=== PATIENT | male | born 1950 | race Caucasian/White ===

== ENCOUNTER → 2017-02-28 | Outpatient (REF) | payer BC ==
[~2017-02-28] MED LIST: BENA1TAB32 PO; CIPR500S PO; CIPR500T89 PO; MULTCAP PO; OMEP40CA2 PO; SERT25TA PO; [UNRECOGNIZED DRUG - OTHER] PO
[2017-02-28 12:59] LABS: ALBUMIN 3.8 GM/DL (3.2-5.2); ALBUMIN/GLOBULIN RATIO 1.19 (1.00-1.93); ALKALINE PHOSPHATASE 67 U/L (45-117); ALT/SGPT 21 U/L (12-78); ANION GAP 4 MEQ/L (8-16); AST/SGOT 20 U/L (15-37); BILIRUBIN,TOTAL 0.6 MG/DL (0.2-1.0); BLOOD UREA NITROGEN 14 MG/DL (7-18); CALCIUM LEVEL 8.8 MG/DL (8.8-10.2); CARBON DIOXIDE LEVEL 35 MEQ/L (21-32); CHLORIDE LEVEL 101 MEQ/L (98-107); CHOLESTEROL LEVEL 151 MG/DL (<200); CREATININE FOR GFR 1.15 MG/DL (0.70-1.30); GLOMERULAR FILTRATION RATE > 60.0 (>49); GLUCOSE, FASTING 94 MG/DL (80-110); POTASSIUM SERUM 3.9 MEQ/L (3.5-5.1); SODIUM LEVEL 140 MEQ/L (136-145); TRIGLYCERIDES LEVEL 78 MG/DL (<150)
== END ==
LOC: M SFHCCLAY 08:23
PROVIDERS: ATTEND Family Medicine
DX: I10 Essential (primary) hypertension (principal); Z12.5 Encounter for screening for malignant neoplasm of prostate
CPT/HCPCS: 80053; 80061; 84443; G0103

== ENCOUNTER → 2018-05-21 | Outpatient (REF) | payer BC | LOC: M LAB REF 16:38 | DX: R30.0 Dysuria (principal) | CPT/HCPCS: 87086 ==

== ENCOUNTER → 2018-06-25 | Outpatient (REF) | payer BC | LOC: M SFHCCLAY 06-26 11:30 | DX: N39.0 Urinary tract infection, site not specified (principal) | CPT/HCPCS: 87086 ==

== ENCOUNTER → 2018-07-02 | Outpatient (REF) | payer BC ==
[2018-07-02 13:50] LABS: APPEARANCE, URINE CLEAR (CLEAR); BACTERIA, URINE AUTO NEGATIVE (NEGATIVE); BILIRUBIN, URINE AUTO NEGATIVE (NEGATIVE); BLOOD, URINE BLOOD 1+ (NEGATIVE); COLOR, URINE YELLOW (YELLOW); GLUCOSE, URINE (UA) AUTO NEGATIVE (NEGATIVE); KETONE, URINE AUTO NEGATIVE (NEGATIVE); LEUKOCYTE ESTERASE, URINE AUTO TRACE (NEGATIVE); MUCUS, URINE SMALL (NEGATIVE); NITRITE, URINE AUTO NEGATIVE (NEGATIVE); PROTEIN, URINE AUTO NEGATIVE (NEGATIVE); RBC, URINE AUTO 33 /HPF (0-3); SPECIFIC GRAVITY URINE AUTO 1.012 (1.002-1.035); SQUAMOUS EPITHELIAL CELL UR AU 0 /HPF (0-6); UROBILINOGEN, URINE AUTO 0.2 mg/dL (0.0-2.0); WBC, URINE AUTO 5 /HPF (0-3)
== END ==
LOC: M SMT 13:10
DX: R10.9 Unspecified abdominal pain (principal)

== ENCOUNTER → 2018-07-08 | Outpatient (CLI) | payer BC | LOC: M RAD 08:30 | DX: R10.9 Unspecified abdominal pain (principal); Z87.442 Personal history of urinary calculi; N28.1 Cyst of kidney, acquired; N13.2 Hydronephrosis with renal and ureteral calculous obstruction | CPT/HCPCS: 74176 ==

== ENCOUNTER → 2018-07-18 | Outpatient (CLI) | payer BC ==
[2018-07-18 09:42] LABS: HEMOGLOBIN 12.2 g/dl (13.5-17.5); MEAN CORPUSCULAR HEMOGLOBIN 35.2 pg (27.0-33.0); MEAN CORPUSCULAR HGB CONC 35.9 g/dl (32.0-36.5); PLATELET COUNT, AUTOMATED 245 10^3/uL (150-450); RED BLOOD COUNT 3.47 10^6/uL (4.30-6.10); RED CELL DISTRIBUTION WIDTH 12.6 % (11.5-14.5); WHITE BLOOD COUNT 5.1 10^3/uL (4.0-10.0)
[2018-07-18 09:53] LABS: INR 1.04; PROTHROMBIN TIME 13.7 SECONDS (12.1-14.4)
[2018-07-18 09:54] LABS: PARTIAL THROMBOPLASTIN TIME 31.4 SECONDS (25.4-37.6)
[2018-07-18 10:02] LABS: ANION GAP 9 MEQ/L (8-16); BLOOD UREA NITROGEN 14 MG/DL (7-18); CARBON DIOXIDE LEVEL 31 MEQ/L (21-32); CHLORIDE LEVEL 99 MEQ/L (98-107); CREATININE FOR GFR 1.21 MG/DL (0.70-1.30); GLOMERULAR FILTRATION RATE > 60.0 (>49); GLUCOSE, FASTING 95 MG/DL (70-100); POTASSIUM SERUM 3.9 MEQ/L (3.5-5.1); SODIUM LEVEL 139 MEQ/L (136-145)
== END ==
LOC: M LAB 08:39
DX: Z01.818 Encounter for other preprocedural examination (principal); N20.0 Calculus of kidney
CPT/HCPCS: 71046

== ENCOUNTER 2018-07-30 09:20 | Day surgery (SDC) | payer BC ==
[~2018-07-30 09:20] MED LIST changes: -BENA1TAB32 PO; -CIPR500S PO; -CIPR500T89 PO; +LIDOCAINE 1% MDV 20ML VIAL SQ; -MULTCAP PO; -OMEP40CA2 PO; -SERT25TA PO; -[UNRECOGNIZED DRUG - OTHER] PO
[2018-07-30] MEDS: LR 1,000 ML IV (10:03)
[2018-07-30] MEDS ORDERED: LIDOCAINE 2% INJ 100 MG/5 ML SDV (FOR ANES.) As Ordered (10:09)
[2018-07-30] MEDS ORDERED: PROPOFOL 200 MG/20 ML VIAL As Ordered (10:09)
[2018-07-30] MEDS ORDERED: fentaNYL 250 MCG/5 ML INJECTION (J3010) As Ordered (10:09)
[2018-07-30] MEDS ORDERED: MIDAZOLAM INJ 2 MG/2 ML VIAL (J2250) As Ordered (10:09)
[2018-07-30] MEDS: CONRAY-60 60% 50ML VIAL (Q9961) As Ordered (11:15)
[2018-07-30] MEDS ORDERED: ONDANSETRON 4MG/2ML VIAL (J2405) As Ordered (11:27)
[2018-07-30] MEDS ORDERED: KETOROLAC 60 MG/2 ML VIAL (J1885) As Ordered (11:27)
[2018-07-30] MEDS ORDERED: dexameTHASONE 4 MG/ML 1ML VIAL (J1100) As Ordered ×2 (11:27)
[2018-07-30] MEDS ORDERED: fentaNYL 100 MCG/2 ML INJECTION (J3010) IV (13:15)
[2018-07-30] MEDS ORDERED: LR 1,000 ML IV (13:15)
[2018-07-30] MEDS ORDERED: ONDANSETRON 4MG/2ML VIAL (J2405) IV (13:15)
[2018-07-30] MEDS ORDERED: ACETAMINOPHEN 650MG ER TAB (TYLENOL ARTHRITIS) PO (14:00)
[2018-07-30] MEDS ORDERED: CIPROFLOXACIN 500 MG TAB PO (18:00)
== END 2018-07-30 17:15 | disposition home or self-care (01) ==
LOC: M SDC 09:20
DX: N20.1 Calculus of ureter (principal); I10 Essential (primary) hypertension; M12.9 Arthropathy, unspecified; Z87.891 Personal history of nicotine dependence; Z79.899 Other long term (current) drug therapy
CPT/HCPCS: 52356

== ENCOUNTER → 2018-08-25 | Outpatient (REF) | payer BC ==
[2018-08-25 18:53] LABS: APPEARANCE, URINE CLEAR (CLEAR); BACTERIA, URINE AUTO NEGATIVE (NEGATIVE); BILIRUBIN, URINE AUTO NEGATIVE (NEGATIVE); BLOOD, URINE BLOOD NEGATIVE (NEGATIVE); COLOR, URINE YELLOW (YELLOW); GLUCOSE, URINE (UA) AUTO NEGATIVE (NEGATIVE); KETONE, URINE AUTO NEGATIVE (NEGATIVE); LEUKOCYTE ESTERASE, URINE AUTO NEGATIVE (NEGATIVE); NITRITE, URINE AUTO NEGATIVE (NEGATIVE); PROTEIN, URINE AUTO NEGATIVE (NEGATIVE); RBC, URINE AUTO 0 /HPF (0-3); SPECIFIC GRAVITY URINE AUTO 1.012 (1.002-1.035); SQUAMOUS EPITHELIAL CELL UR AU 0 /HPF (0-6); UROBILINOGEN, URINE AUTO 0.2 mg/dL (0.0-2.0); WBC, URINE AUTO 0 /HPF (0-3)
== END ==
LOC: M SMT 17:25
DX: N20.0 Calculus of kidney (principal)
CPT/HCPCS: 81001

== ENCOUNTER → 2019-03-25 | Outpatient (REF) | payer BC ==
[~2019-03-25] MED LIST changes: +BENA1TAB32 PO; +CIPR-249 PO; +CIPR500S PO; +CIPR500T3 PO; -LIDOCAINE 1% MDV 20ML VIAL SQ; +MULTCAP PO; +OMEP40CA2 PO; +SERT25TA85 PO; +TYLE650T35 PO; +[UNRECOGNIZED DRUG - OTHER] PO
[2019-03-25 11:12] LABS: HEMATOCRIT 35.1 % (42.0-52.0); HEMOGLOBIN 12.6 g/dl (13.5-17.5); MEAN CORPUSCULAR HEMOGLOBIN 35.1 pg (27.0-33.0); MEAN CORPUSCULAR HGB CONC 35.9 g/dl (32.0-36.5); MEAN CORPUSCULAR VOLUME 97.8 fl (80.0-96.0); PLATELET COUNT, AUTOMATED 266 10^3/uL (150-450); RED BLOOD COUNT 3.59 10^6/uL (4.30-6.10)
[2019-03-25 11:27] LABS: ALBUMIN 3.5 GM/DL (3.2-5.2); ALT/SGPT 22 U/L (12-78); BILIRUBIN,TOTAL 0.8 MG/DL (0.2-1.0); BLOOD UREA NITROGEN 20 MG/DL (7-18); CALCIUM LEVEL 8.4 MG/DL (8.8-10.2); CARBON DIOXIDE LEVEL 32 MEQ/L (21-32); CHLORIDE LEVEL 103 MEQ/L (98-107); CHOLESTEROL LEVEL 125 MG/DL (<200); CHOLESTEROL RISK RATIO 2.049 (<5); CREATININE FOR GFR 1.24 MG/DL (0.70-1.30); GLOMERULAR FILTRATION RATE > 60.0 (>49); GLUCOSE, FASTING 89 MG/DL (70-100); HDL CHOLESTEROL 61 MG/DL (>40); LDL CHOLESTEROL 50 MG/DL (<100); NON-HDL-C 64 MG/DL; POTASSIUM SERUM 4.1 MEQ/L (3.5-5.1); SODIUM LEVEL 139 MEQ/L (136-145); TRIGLYCERIDES LEVEL 72 MG/DL (<150)
== END ==
LOC: M SFHCCLAY 08:10
PROVIDERS: ATTEND Nurse Practitioner Family
DX: K21.9 Gastro-esophageal reflux disease without esophagitis (principal); I10 Essential (primary) hypertension

== ENCOUNTER → 2019-04-21 | Outpatient (REF) | payer BC ==
[2019-04-21 11:49] LABS: HEMATOCRIT 37.3 % (42.0-52.0); HEMOGLOBIN 13.2 g/dl (13.5-17.5); MEAN CORPUSCULAR HEMOGLOBIN 35.8 pg (27.0-33.0); MEAN CORPUSCULAR HGB CONC 35.4 g/dl (32.0-36.5); MEAN CORPUSCULAR VOLUME 101.1 fl (80.0-96.0); PLATELET COUNT, AUTOMATED 243 10^3/uL (150-450); RED BLOOD COUNT 3.69 10^6/uL (4.30-6.10); WHITE BLOOD COUNT 5.7 10^3/uL (4.0-10.0)
[2019-04-21 12:39] LABS: FERRITIN 50 NG/ML (26-388); FOLATE > 24.0 NG/ML (>5.4); IRON (FE) 60 UG/DL (65-175); PERCENT SATURATION 22.9 % (19.7-50.0); TOTAL IRON BINDING CAPACITY 262 UG/DL (250-450); VITAMIN B12 LEVEL 592 PG/ML (247-911)
== END ==
LOC: M SFHCCLAY 08:18
PROVIDERS: ATTEND Nurse Practitioner Family
DX: D64.9 Anemia, unspecified (principal)

== ENCOUNTER → 2019-09-08 | Outpatient (REF) | payer BC ==
[~2019-09-08] MED LIST changes: -OMEP40CA2 PO; +OMEP40CA97 PO
[2019-09-08 11:58] LABS: HEMATOCRIT 37.6 % (42.0-52.0); HEMOGLOBIN 13.4 g/dl (13.5-17.5); MEAN CORPUSCULAR HEMOGLOBIN 35.9 pg (27.0-33.0); MEAN CORPUSCULAR HGB CONC 35.6 g/dl (32.0-36.5); MEAN CORPUSCULAR VOLUME 100.8 fl (80.0-96.0); PLATELET COUNT, AUTOMATED 290 10^3/uL (150-450); RED BLOOD COUNT 3.73 10^6/uL (4.30-6.10); WHITE BLOOD COUNT 9.6 10^3/uL (4.0-10.0)
[2019-09-08 12:03] LABS: PERCENT SATURATION 40.7 % (19.7-50.0)
== END ==
LOC: M SFHCCLAY 08:52
PROVIDERS: ATTEND Nurse Practitioner Family
DX: D64.9 Anemia, unspecified (principal)

== ENCOUNTER → 2020-05-20 | Outpatient (REF) | payer BC ==
[~2020-05-20] MED LIST changes: +ACET650T61 PO; -TYLE650T35 PO
[2020-05-20 11:56] LABS: HEMATOCRIT 35.6 % (42.0-52.0); HEMOGLOBIN 12.7 g/dl (13.5-17.5); MEAN CORPUSCULAR HEMOGLOBIN 35.2 pg (27.0-33.0); MEAN CORPUSCULAR HGB CONC 35.7 g/dl (32.0-36.5); MEAN CORPUSCULAR VOLUME 98.6 fl (80.0-96.0); PLATELET COUNT, AUTOMATED 228 10^3/uL (150-450); RED BLOOD COUNT 3.61 10^6/uL (4.30-6.10); WHITE BLOOD COUNT 5.3 10^3/uL (4.0-10.0)
[2020-05-20 12:36] LABS: ALBUMIN 3.6 GM/DL (3.2-5.2); ALT/SGPT 23 U/L (12-78); BILIRUBIN,TOTAL 0.4 MG/DL (0.2-1.0); BLOOD UREA NITROGEN 19 MG/DL (7-18); CALCIUM LEVEL 8.8 MG/DL (8.8-10.2); CARBON DIOXIDE LEVEL 31 MEQ/L (21-32); CHLORIDE LEVEL 103 MEQ/L (98-107); CHOLESTEROL LEVEL 145 MG/DL (<200); CHOLESTEROL RISK RATIO 2.377 (<5); CREATININE FOR GFR 1.24 MG/DL (0.70-1.30); FERRITIN 50 NG/ML (26-388); GLOMERULAR FILTRATION RATE > 60.0 (>49); GLUCOSE, FASTING 93 MG/DL (70-100); HDL CHOLESTEROL 61 MG/DL (>40); IRON (FE) 53 UG/DL (65-175); LDL CHOLESTEROL 75 MG/DL (<100); NON-HDL-C 84 MG/DL; PERCENT SATURATION 19.5 % (19.7-50.0); POTASSIUM SERUM 4.1 MEQ/L (3.5-5.1); SODIUM LEVEL 137 MEQ/L (136-145); TOTAL IRON BINDING CAPACITY 272 UG/DL (250-450); TOTAL PROTEIN 6.9 GM/DL (6.4-8.2); TRIGLYCERIDES LEVEL 43 MG/DL (<150)
[2020-05-20 18:04] LABS: FOLATE 20.9 NG/ML (>5.4)
== END ==
LOC: M SFHCCLAY 08:24
PROVIDERS: ATTEND Nurse Practitioner Family
DX: K21.9 Gastro-esophageal reflux disease without esophagitis (principal); I10 Essential (primary) hypertension

== ENCOUNTER → 2020-06-14 | Outpatient (REF) | payer BC ==
[2020-06-14 13:22] LABS: ALBUMIN 3.8 GM/DL (3.2-5.2); BLOOD UREA NITROGEN 15 MG/DL (7-18); CALCIUM LEVEL 8.6 MG/DL (8.8-10.2); CARBON DIOXIDE LEVEL 31 MEQ/L (21-32); CHLORIDE LEVEL 96 MEQ/L (98-107); CREATININE FOR GFR 1.16 MG/DL (0.70-1.30); GLOMERULAR FILTRATION RATE > 60.0 (>49); GLUCOSE, FASTING 93 MG/DL (70-100); PHOSPHORUS LEVEL 3.1 MG/DL (2.5-4.9); POTASSIUM SERUM 3.6 MEQ/L (3.5-5.1); SODIUM LEVEL 134 MEQ/L (136-145)
== END ==
LOC: M SFHCCLAY 07:51
PROVIDERS: ATTEND Nurse Practitioner Family
DX: I10 Essential (primary) hypertension (principal)

== ENCOUNTER → 2021-02-16 | Outpatient (REF) | payer BC ==
[2021-02-16 12:30] LABS: HEMOGLOBIN 13.4 g/dl (13.5-17.5); MEAN CORPUSCULAR HEMOGLOBIN 35.1 pg (27.0-33.0); MEAN CORPUSCULAR HGB CONC 35.3 g/dl (32.0-36.5); MEAN CORPUSCULAR VOLUME 99.5 fl (80.0-96.0); PLATELET COUNT, AUTOMATED 252 10^3/uL (150-450); RED BLOOD COUNT 3.82 10^6/uL (4.30-6.10); WHITE BLOOD COUNT 5.9 10^3/uL (4.0-10.0)
[2021-02-16 13:02] LABS: ALBUMIN 3.9 GM/DL (3.2-5.2); ALT/SGPT 25 U/L (12-78); BILIRUBIN,TOTAL 0.4 MG/DL (0.2-1.0); BLOOD UREA NITROGEN 22 MG/DL (7-18); CALCIUM LEVEL 8.9 MG/DL (8.8-10.2); CARBON DIOXIDE LEVEL 33 MEQ/L (21-32); CHLORIDE LEVEL 101 MEQ/L (98-107); CHOLESTEROL LEVEL 160 MG/DL (<200); CHOLESTEROL RISK RATIO 2.461 (<5); CREATININE FOR GFR 1.21 MG/DL (0.70-1.30); FERRITIN 109 NG/ML (26-388); GLOMERULAR FILTRATION RATE > 60.0 (>49); GLUCOSE, FASTING 88 MG/DL (70-100); HDL CHOLESTEROL 65 MG/DL (>40); IRON (FE) 98 UG/DL (65-175); LDL CHOLESTEROL 78 MG/DL (<100); NON-HDL-C 95 MG/DL; PERCENT SATURATION 40.2 % (19.7-50.0); POTASSIUM SERUM 3.7 MEQ/L (3.5-5.1); SODIUM LEVEL 138 MEQ/L (136-145); TOTAL IRON BINDING CAPACITY 244 UG/DL (250-450); TRIGLYCERIDES LEVEL 86 MG/DL (<150)
[2021-02-16 13:03] LABS: VITAMIN B12 LEVEL 464 PG/ML
[2021-02-16 15:55] LABS: FOLATE > 24.0 NG/ML
== END ==
LOC: M SFHCCLAY 11:52
PROVIDERS: ATTEND Nurse Practitioner Family
DX: I10 Essential (primary) hypertension (principal); D64.9 Anemia, unspecified; K21.9 Gastro-esophageal reflux disease without esophagitis; F41.9 Anxiety disorder, unspecified; R60.9 Edema, unspecified

== ENCOUNTER → 2021-08-23 | Outpatient (REF) | payer BC ==
[~2021-08-23] MED LIST changes: +OMEP40CA4 PO; -OMEP40CA97 PO
[2021-08-23 12:05] LABS: HEMOGLOBIN 12.2 g/dl (13.5-17.5); MEAN CORPUSCULAR HEMOGLOBIN 34.4 pg (27.0-33.0); MEAN CORPUSCULAR HGB CONC 34.9 g/dl (32.0-36.5); MEAN CORPUSCULAR VOLUME 98.6 fl (80.0-96.0); PLATELET COUNT, AUTOMATED 244 10^3/uL (150-450); RED BLOOD COUNT 3.55 10^6/uL (4.30-6.10); WHITE BLOOD COUNT 6.2 10^3/uL (4.0-10.0)
== END ==
LOC: M SFHCCLAY 09:10
PROVIDERS: ATTEND Nurse Practitioner Family
DX: D64.9 Anemia, unspecified (principal); Z12.5 Encounter for screening for malignant neoplasm of prostate

== ENCOUNTER → 2021-10-20 | Outpatient (CLI) | payer BC ==
[~2021-10-20] MED LIST changes: +MULTTAB61 PO; +SERT50TA29 PO; +VITA200016 PO; +VITA250T4 PO
--- NOTE | 2021-10-20 13:43 | REP ---
INDICATION: DECREASED GFR ANEMIA COMPARISON: None TECHNIQUE: Real time denis scale ultrasound examination using curved array transducer. FINDINGS: The kidneys both demonstrate mildly increased parenchymal echotexture and increased central sinus fat suggesting chronic medical renal disease. Right kidney measures 11.1 x 5.6 x 4.6 cm with 1.7 cm lower pole benign appearing cyst and no evidence for hydronephrosis, nephrolithiasis, or renal mass lesion. Left kidney measures 10.4 x 4.8 x 5.4 cm with 2.4 cm septated midpole cortical cyst and no evidence for hydronephrosis, nephrolithiasis, or renal mass lesion. The prostate gland is heterogeneous, measures 5.6 x 5.8 x 4.6 cm (78 cc) and demonstrates nodular mass effect on the base of the bladder. Incidental subcentimeter hepatic cyst in the visualized right lobe noted. IMPRESSION: 1. Chronic medical renal disease and solitary bilateral cysts as above. 2. Enlarged prostate gland. <Electronically signed by Nimesh Benito > 10/20/21 1378
== END ==
LOC: M RAD 13:03
PROVIDERS: ATTEND Internal Medicine Medical Oncology
DX: D64.9 Anemia, unspecified (principal); N28.1 Cyst of kidney, acquired; K76.89 Other specified diseases of liver; N40.0 Benign prostatic hyperplasia without lower urinary tract symptoms; N18.9 Chronic kidney disease, unspecified

== ENCOUNTER → 2022-02-26 | Outpatient (REF) | payer BC ==
[~2022-02-26] MED LIST changes: +FERR325T3 PO; +OCUV1CAP4 PO; +TAMS1CAP17 PO
[2022-02-26 11:56] LABS: BASO # 0.1 10^3/uL (0.0-0.2); BASO % 1.4 % (0.0-1.0); EOS # 0.4 10^3/uL (0.0-0.5); EOS % 6.7 % (0.0-3.0); HEMOGLOBIN 11.8 g/dl (13.5-17.5); LYMPH # 1.6 10^3/uL (1.5-5.0); LYMPH % 24.8 % (24.0-44.0); MEAN CORPUSCULAR HEMOGLOBIN 34.3 pg (27.0-33.0); MEAN CORPUSCULAR HGB CONC 34.7 g/dl (32.0-36.5); MEAN CORPUSCULAR VOLUME 98.8 fl (80.0-96.0); MONO # 0.5 10^3/uL (0.0-0.8); MONO % 8.3 % (2.0-8.0); NEUTROPHILS # 3.8 10^3/uL (1.5-8.5); NEUTROPHILS % 58.6 % (36.0-66.0); PLATELET COUNT, AUTOMATED 239 10^3/uL (150-450); RED BLOOD COUNT 3.44 10^6/uL (4.30-6.10); WHITE BLOOD COUNT 6.5 10^3/uL (4.0-10.0)
[2022-02-26 12:14] LABS: ALBUMIN 3.8 GM/DL (3.2-5.2); BILIRUBIN,TOTAL 0.4 MG/DL (0.2-1.0); CALCIUM LEVEL 8.7 MG/DL (8.8-10.2); CHOLESTEROL RISK RATIO 2.666 (<5); CREATININE FOR GFR 2.09 MG/DL (0.70-1.30); FREE T4 0.95 NG/DL (0.76-1.46); GLOMERULAR FILTRATION RATE 33.6 (>42); THYROID STIMULATING HORMONE 1.28 uIU/ML (0.358-3.740)
== END ==
LOC: M SFHCCLAY 08:36
PROVIDERS: ATTEND Nurse Practitioner Family
DX: I10 Essential (primary) hypertension (principal); D64.9 Anemia, unspecified; F41.1 Generalized anxiety disorder; K21.9 Gastro-esophageal reflux disease without esophagitis

== ENCOUNTER → 2022-09-16 | Outpatient (CLI) | payer BC ==
[~2022-09-16] MED LIST changes: +D ME PO
== END ==
LOC: M LABSMTC 09:28
PROVIDERS: ATTEND Anesthesiology
DX: Z01.812 Encounter for preprocedural laboratory examination (principal); Z11.52 Encounter for screening for COVID-19

== ENCOUNTER 2022-09-19 08:50 | Day surgery (SDC) | payer BC ==
[~2022-09-19] VITALS: Ht 170.2 cm; Wt 78.8 kg
[2022-09-19] MEDS: NS 1,000 ML IV ONE (09:28)
[2022-09-19] MEDS ORDERED: fentaNYL 100 MCG/2 ML INJECTION As Ordered ONE (10:01)
[2022-09-19] MEDS ORDERED: LIDOCAINE 2% 100MG/5ML SDV (FOR ANES.) As Ordered ONE (10:07)
[2022-09-19] MEDS ORDERED: propofoL 200 MG/20 ML VIAL As Ordered ONE (10:07)
[2022-09-19 10:45] VITALS: BP 108/61
== END 2022-09-19 10:54 | disposition home or self-care (01) ==
LOC: M OPP 08:50
PROVIDERS: ATTEND Internal Medicine Gastroenterology
DX: Z12.11 Encounter for screening for malignant neoplasm of colon (principal); K64.0 First degree hemorrhoids; R12 Heartburn; Z79.899 Other long term (current) drug therapy; I10 Essential (primary) hypertension; F41.9 Anxiety disorder, unspecified; Z79.891 Long term (current) use of opiate analgesic; Z80.1 Family history of malignant neoplasm of trachea, bronchus and lung; Z80.3 Family history of malignant neoplasm of breast
CPT/HCPCS: 43235; 45378; J3010

== ENCOUNTER → 2023-01-07 | Outpatient (CLI) | payer BC | LOC: M PLALAB 13:00 | PROVIDERS: ATTEND Nurse Practitioner Women's Health | DX: Z12.5 Encounter for screening for malignant neoplasm of prostate (principal) | CPT/HCPCS: 36415; G0103 ==

== ENCOUNTER → 2023-02-22 | Outpatient (REF) | payer BC ==
[~2023-02-22] MED LIST changes: +FINA5TAB2
[2023-02-22 13:30] LABS: BASO # 0.1 10^3/uL (0.0-0.2); BASO % 1.2 % (0.0-1.0); EOS # 0.3 10^3/uL (0.0-0.5); EOS % 5.5 % (0.0-3.0); HEMATOCRIT 31.4 % (42.0-52.0); HEMOGLOBIN 10.7 g/dl (13.5-17.5); LYMPH # 1.5 10^3/uL (1.5-5.0); LYMPH % 24.8 % (24.0-44.0); MEAN CORPUSCULAR HEMOGLOBIN 34.2 pg (27.0-33.0); MEAN CORPUSCULAR HGB CONC 34.1 g/dl (32.0-36.5); MEAN CORPUSCULAR VOLUME 100.3 fl (80.0-96.0); MONO # 0.5 10^3/uL (0.0-0.8); MONO % 8.5 % (2.0-8.0); NEUTROPHILS # 3.6 10^3/uL (1.5-8.5); NEUTROPHILS % 59.8 % (36.0-66.0); PLATELET COUNT, AUTOMATED 249 10^3/uL (150-450); RED BLOOD COUNT 3.13 10^6/uL (4.30-6.10)
[2023-02-22 13:55] LABS: ALBUMIN 3.7 G/DL (3.2-5.2); BILIRUBIN,TOTAL 0.5 MG/DL (0.3-1.2); CHOLESTEROL RISK RATIO 2.69 (<5); CREATININE FOR GFR 2.87 MG/DL (0.70-1.30); GLOMERULAR FILTRATION RATE 23.2 (>42); HDL CHOLESTEROL 54.5 MG/DL (>40); LDL CHOLESTEROL 74.3 MG/DL (<100); NON-HDL-C 92.5 MG/DL; POTASSIUM SERUM 4.1 MMOL/L (3.5-5.1); TOTAL PROTEIN 6.6 G/DL (5.7-8.2)
[2023-02-22 13:57] LABS: FREE T4 1.17 NG/DL (0.89-1.76); THYROID STIMULATING HORMONE 1.187 uIU/ML (0.55-4.78)
== END ==
LOC: M SFHCCLAY 08:02
PROVIDERS: ATTEND Nurse Practitioner Family
DX: I10 Essential (primary) hypertension (principal); N18.32 Chronic kidney disease, stage 3b; N40.0 Benign prostatic hyperplasia without lower urinary tract symptoms; D64.9 Anemia, unspecified; K21.9 Gastro-esophageal reflux disease without esophagitis; F41.1 Generalized anxiety disorder

== ENCOUNTER → 2023-04-26 | Outpatient (CLI) | payer BC | LOC: M RAD 12:46 | PROVIDERS: ATTEND Internal Medicine Nephrology | DX: N28.1 Cyst of kidney, acquired (principal) ==

== ENCOUNTER → 2023-06-11 | Outpatient (CLI) | payer BC | LOC: M RAD 09:26 | PROVIDERS: ATTEND Physician Assistant | DX: N50.89 Other specified disorders of the male genital organs (principal) ==

== ENCOUNTER 2023-06-30 09:51 | Inpatient (IN) | payer MEDICARE, BC ==
[~2023-06-30] VITALS: Ht 170.2 cm; Wt 83.2 kg
[~2023-06-30 09:51] MED LIST changes: -FINA5TAB2; +FINA5TAB2 PO
[2023-06-30 11:37] LABS: BASO # 0.1 10^3/uL (0.0-0.2); BASO % 0.7 % (0.0-1.0); EOS % 0.5 % (0.0-3.0); HEMATOCRIT 25.3 % (42.0-52.0); HEMOGLOBIN 8.7 g/dl (13.5-17.5); LYMPH # 0.5 10^3/uL (1.5-5.0); LYMPH % 6.5 % (24.0-44.0); MEAN CORPUSCULAR HGB CONC 34.4 g/dl (32.0-36.5); MEAN CORPUSCULAR VOLUME 98.8 fl (80.0-96.0); MONO # 0.3 10^3/uL (0.0-0.8); MONO % 4.4 % (2.0-8.0); NEUTROPHILS # 6.6 10^3/uL (1.5-8.5); NEUTROPHILS % 87.6 % (36.0-66.0); PLATELET COUNT, AUTOMATED 210 10^3/uL (150-450); RED BLOOD COUNT 2.56 10^6/uL (4.30-6.10); WHITE BLOOD COUNT 7.5 10^3/uL (4.0-10.0)
[2023-06-30] MEDS ORDERED: NS 1,000 ML IV ONE (11:45)
[2023-06-30 12:07] LABS: CK-MB VALUE MASS 1.4 NG/ML (<3.6); LIPASE 68 U/L (12-53)
[2023-06-30 12:09] LABS: ALBUMIN 3.7 G/DL (3.2-5.2); ALKALINE PHOSPHATASE 54 U/L (46-116); ALT/SGPT 13 U/L (7.0-40); AST/SGOT < 8 U/L (<34); BILIRUBIN,DIRECT < 0.1 MG/DL (<0.4); BILIRUBIN,TOTAL 0.2 MG/DL (0.3-1.2); TOTAL PROTEIN 6.4 G/DL (5.7-8.2)
[2023-06-30 12:11] LABS: CPK CREATINE PHOSPHOKINASE 66 U/L (46-171); MB/CK RELATIVE INDEX 2.12 (< OR =4)
[2023-06-30 13:12] LABS: INFLUENZA A AMPLIFICATION NEGATIVE (NEGATIVE); INFLUENZA B AMPLIFICATION NEGATIVE (NEGATIVE)
[2023-06-30] MEDS ORDERED: NS 1,000 ML IV SCH (13:35)
[2023-06-30] MEDS ORDERED: MED REC IN PROGRESS XX SCH (14:00)
[2023-06-30 14:41] LABS: CALCIUM LEVEL 7.9 MG/DL (8.3-10.6); CREATININE FOR GFR 11.41 MG/DL (0.70-1.30); GLOMERULAR FILTRATION RATE 4.7 (>42); POTASSIUM SERUM 5.2 MMOL/L (3.5-5.1)
[2023-06-30] MEDS ORDERED: ACETAMINOPHEN TAB 650MG DOSE (2X325MG) PO PRN (14:45)
[2023-06-30] MEDS ORDERED: MOM 30ML SUSPENSION UDC PO PRN (14:45)
[2023-06-30] MEDS ORDERED: SOD POLYSTYRENE SULFONATE SUSP 15GM 60ML UD PO ONE (14:45)
[2023-06-30] MEDS ORDERED: OMEP-173 PO (14:52)
[2023-06-30] MEDS ORDERED: CYAN-1 PO (14:53)
[2023-06-30] MEDS ORDERED: HOME MED LIST COMPLETE! XX SCH (15:00)
[2023-06-30] MEDS: NS 1,000 ML IV SCH (15:05)
[2023-06-30 15:19] LABS: FERRITIN 222.7 NG/ML (10.5-307.3)
[2023-06-30 15:28] LABS: PROCALCITONIN 0.13 ng/ml
[2023-06-30 15:35] LABS: FOLATE 19.6 NG/ML (>5.4)
[2023-06-30 16:04] LABS: CREATININE,RANDOM URINE 82.7 MG/DL
[2023-06-30 17:55] LABS: ALBUMIN 3.3 G/DL (3.2-5.2); PHOSPHORUS LEVEL 5.7 MG/DL (2.4-5.1)
[2023-06-30 18:17] VITALS: BP 146/70; TEMP 97.7; O2SAT 98
[2023-06-30] MEDS: FERROUS SULFATE 325MG TAB PO SCH (18:28)
[2023-06-30 19:24] VITALS: BP 135/66; TEMP 98.7; O2SAT 100
[2023-06-30] MEDS: HEPARIN SOD (PORCINE) 5000UNITS/ML 1ML VIAL/SYRINGE SC SCH (20:34)
[2023-06-30] MEDS: DOCUSATE SODIUM 100MG CAPSULE PO SCH (21:00)
[2023-07-01] VITALS (11 sets, daily range): BP systolic 121–174; BP diastolic 61–78; TEMP 97.4–98.9; O2SAT 97–100
[2023-07-01] MEDS: NS 1,000 ML IV SCH ×2 (02:21→11:52)
[2023-07-01 04:53] LABS: BASO % 0.6 % (0.0-1.0); EOS # 0.3 10^3/uL (0.0-0.5); EOS % 4.4 % (0.0-3.0); HEMATOCRIT 21.6 % (42.0-52.0); HEMOGLOBIN 7.4 g/dl (13.5-17.5); LYMPH # 0.6 10^3/uL (1.5-5.0); MEAN CORPUSCULAR HEMOGLOBIN 34.4 pg (27.0-33.0); MEAN CORPUSCULAR HGB CONC 34.3 g/dl (32.0-36.5); MEAN CORPUSCULAR VOLUME 100.5 fl (80.0-96.0); MONO # 0.2 10^3/uL (0.0-0.8); MONO % 3.4 % (2.0-8.0); NEUTROPHILS # 5.9 10^3/uL (1.5-8.5); NEUTROPHILS % 83.3 % (36.0-66.0); PLATELET COUNT, AUTOMATED 181 10^3/uL (150-450); RED BLOOD COUNT 2.15 10^6/uL (4.30-6.10); WHITE BLOOD COUNT 7.1 10^3/uL (4.0-10.0)
[2023-07-01 05:05] LABS: CALCIUM LEVEL 7.6 MG/DL (8.3-10.6); CREATININE FOR GFR 11.53 MG/DL (0.70-1.30); GLOMERULAR FILTRATION RATE 4.7 (>42); MAGNESIUM LEVEL 2.7 MG/DL (1.8-2.4); POTASSIUM SERUM 5.1 MMOL/L (3.5-5.1)
[2023-07-01] MEDS: HEPARIN SOD (PORCINE) 5000UNITS/ML 1ML VIAL/SYRINGE SC SCH ×3 (05:42→20:40)
[2023-07-01] MEDS ORDERED: HEPARIN 1,000UNITS/ML 10ML VIAL (FOR RADIOLOGY & DIALYSIS ONLY) IV PRN (10:15)
[2023-07-01] MEDS ORDERED: SODIUM CHLORIDE 0.9% 1000ML IV PRN (10:15)
[2023-07-01] MEDS ORDERED: HEPARIN 1,000UNITS/ML 10ML VIAL (FOR RADIOLOGY & DIALYSIS ONLY) XX SCH (10:15)
[2023-07-01] MEDS ORDERED: fentaNYL 100 MCG/2 ML INJECTION As Ordered ONE (12:28)
[2023-07-01] MEDS ORDERED: HEPARIN 1,000UNITS/ML 10ML VIAL (FOR RADIOLOGY & DIALYSIS ONLY) As Ordered ONE (12:28)
[2023-07-01] MEDS ORDERED: MIDAZOLAM INJ 2MG/2ML VIAL As Ordered ONE (12:28)
[2023-07-01] MEDS ORDERED: LIDOCAINE W/EPINEPHRINE 1% 20ML VIAL As Ordered ONE (12:29)
[2023-07-01] MEDS ORDERED: ceFAZolin 2 GM/D5W 50 ML IV BAG As Ordered ONE (12:31)
[2023-07-01] MEDS: FERROUS SULFATE 325MG TAB PO SCH (13:50)
[2023-07-01] MEDS: DOCUSATE SODIUM 100MG CAPSULE PO SCH ×2 (13:50→20:40)
[2023-07-01] MEDS: MULTIVITAMINS/MINERALS THERAP 1 TAB PO SCH (13:50)
[2023-07-01] MEDS: TAMSULOSIN 0.4 MG CAP PO SCH (13:50)
[2023-07-01] MEDS: OMEPRAZOLE 20MG CAP PO SCH (13:51)
[2023-07-01] MEDS: FINASTERIDE 5MG TAB PO SCH (13:51)
[2023-07-01] MEDS ORDERED: NS 1,000 ML IV SCH (14:00)
[2023-07-01] MEDS ORDERED: ceFAZolin SOD 2 GM in IV 1 EA IV ONE (14:00)
[2023-07-01 15:31] LABS: HEPATITIS B SURFACE ANTIBODY NEGATIVE (POSITIVE)
[2023-07-01 16:03] LABS: HEPATITIS B CORE ANTIBODY IGM NEGATIVE (NEGATIVE); HEPATITIS C VIRUS ABY INDEX 0.11 INDEX (<0.8)
[2023-07-01] MEDS: amLODIPine 5 MG TAB PO SCH (17:59)
[2023-07-01 19:16] LABS: HEMATOCRIT 25.8 % (42.0-52.0); HEMOGLOBIN 8.9 g/dl (13.5-17.5)
[2023-07-02] VITALS (7 sets, daily range): BP systolic 146–167; BP diastolic 71–83; TEMP 97.7–98.4; O2SAT 97–99
[2023-07-02] MEDS ORDERED: HEPARIN 1,000UNITS/ML 10ML VIAL (FOR RADIOLOGY & DIALYSIS ONLY) IV PRN (00:45)
[2023-07-02] MEDS ORDERED: SODIUM CHLORIDE 0.9% 1000ML IV PRN (00:45)
[2023-07-02] MEDS ORDERED: HEPARIN 1,000UNITS/ML 10ML VIAL (FOR RADIOLOGY & DIALYSIS ONLY) XX SCH (00:45)
[2023-07-02] MEDS: HEPARIN SOD (PORCINE) 5000UNITS/ML 1ML VIAL/SYRINGE SC SCH ×3 (05:45→21:27)
[2023-07-02 06:06] LABS: BASO # 0.1 10^3/uL (0.0-0.2); BASO % 0.9 % (0.0-1.0); EOS # 0.4 10^3/uL (0.0-0.5); EOS % 6.9 % (0.0-3.0); HEMATOCRIT 24.4 % (42.0-52.0); HEMOGLOBIN 8.4 g/dl (13.5-17.5); LYMPH # 0.8 10^3/uL (1.5-5.0); LYMPH % 11.9 % (24.0-44.0); MEAN CORPUSCULAR HGB CONC 34.4 g/dl (32.0-36.5); MEAN CORPUSCULAR VOLUME 98.8 fl (80.0-96.0); MONO # 0.5 10^3/uL (0.0-0.8); MONO % 8.3 % (2.0-8.0); NEUTROPHILS # 4.5 10^3/uL (1.5-8.5); NEUTROPHILS % 71.5 % (36.0-66.0); PLATELET COUNT, AUTOMATED 168 10^3/uL (150-450); RED BLOOD COUNT 2.47 10^6/uL (4.30-6.10); WHITE BLOOD COUNT 6.4 10^3/uL (4.0-10.0)
[2023-07-02 06:37] LABS: CALCIUM LEVEL 7.5 MG/DL (8.3-10.6); CREATININE FOR GFR 8.16 MG/DL (0.70-1.30); MAGNESIUM LEVEL 2.2 MG/DL (1.8-2.4); POTASSIUM SERUM 4.3 MMOL/L (3.5-5.1)
[2023-07-02] MEDS: TAMSULOSIN 0.4 MG CAP PO SCH (12:52)
[2023-07-02] MEDS: amLODIPine 5 MG TAB PO SCH (12:52)
[2023-07-02] MEDS: DOCUSATE SODIUM 100MG CAPSULE PO SCH ×2 (12:52→21:00)
[2023-07-02] MEDS: FINASTERIDE 5MG TAB PO SCH (12:52)
[2023-07-02] MEDS: OMEPRAZOLE 20MG CAP PO SCH (12:52)
[2023-07-02] MEDS: FERROUS SULFATE 325MG TAB PO SCH (12:52)
[2023-07-02] MEDS: MULTIVITAMINS/MINERALS THERAP 1 TAB PO SCH (12:53)
[2023-07-03 05:14] VITALS: BP 153/70; TEMP 98.1; O2SAT 98
[2023-07-03] MEDS: HEPARIN SOD (PORCINE) 5000UNITS/ML 1ML VIAL/SYRINGE SC SCH ×3 (05:23→21:09)
[2023-07-03 05:55] LABS: BASO # 0.1 10^3/uL (0.0-0.2); BASO % 0.9 % (0.0-1.0); EOS # 0.5 10^3/uL (0.0-0.5); EOS % 9.3 % (0.0-3.0); HEMATOCRIT 24.3 % (42.0-52.0); HEMOGLOBIN 8.2 g/dl (13.5-17.5); LYMPH # 1.1 10^3/uL (1.5-5.0); LYMPH % 18.7 % (24.0-44.0); MEAN CORPUSCULAR HEMOGLOBIN 33.7 pg (27.0-33.0); MEAN CORPUSCULAR HGB CONC 33.7 g/dl (32.0-36.5); MONO # 0.7 10^3/uL (0.0-0.8); MONO % 11.6 % (2.0-8.0); NEUTROPHILS # 3.4 10^3/uL (1.5-8.5); NEUTROPHILS % 59.3 % (36.0-66.0); PLATELET COUNT, AUTOMATED 148 10^3/uL (150-450); RED BLOOD COUNT 2.43 10^6/uL (4.30-6.10); WHITE BLOOD COUNT 5.8 10^3/uL (4.0-10.0)
[2023-07-03] MEDS ORDERED: SODIUM CHLORIDE 0.9% 1000ML IV PRN (06:05)
[2023-07-03] MEDS ORDERED: HEPARIN 1,000UNITS/ML 10ML VIAL (FOR RADIOLOGY & DIALYSIS ONLY) IV PRN (06:05)
[2023-07-03] MEDS ORDERED: DARBEPOETIN 100MCG/0.5ML *DIALYSIS* SYRINGE IV SCH (06:05)
[2023-07-03] MEDS ORDERED: HEPARIN 1,000UNITS/ML 10ML VIAL (FOR RADIOLOGY & DIALYSIS ONLY) XX SCH (06:05)
[2023-07-03 06:16] LABS: CALCIUM LEVEL 8.1 MG/DL (8.3-10.6); CREATININE FOR GFR 5.77 MG/DL (0.70-1.30); GLOMERULAR FILTRATION RATE 10.4 (>42); MAGNESIUM LEVEL 1.9 MG/DL (1.8-2.4); POTASSIUM SERUM 4.3 MMOL/L (3.5-5.1)
[2023-07-03] MEDS: TAMSULOSIN 0.4 MG CAP PO SCH (06:36)
[2023-07-03] MEDS: DOCUSATE SODIUM 100MG CAPSULE PO SCH ×2 (06:37→21:09)
[2023-07-03] MEDS: FINASTERIDE 5MG TAB PO SCH (06:37)
[2023-07-03] MEDS: FERROUS SULFATE 325MG TAB PO SCH (06:37)
[2023-07-03] MEDS: MULTIVITAMINS/MINERALS THERAP 1 TAB PO SCH (06:37)
[2023-07-03] MEDS: OMEPRAZOLE 20MG CAP PO SCH (06:37)
[2023-07-03] MEDS: amLODIPine 5 MG TAB PO SCH (08:44)
[2023-07-03 16:15] VITALS: BP 159/79; TEMP 97.7; O2SAT 98
[2023-07-03 20:50] VITALS: BP 151/69; TEMP 98.1; O2SAT 98
[2023-07-04 05:54] LABS: BASO # 0.1 10^3/uL (0.0-0.2); EOS # 0.6 10^3/uL (0.0-0.5); EOS % 9.7 % (0.0-3.0); HEMATOCRIT 23.3 % (42.0-52.0); HEMOGLOBIN 8.2 g/dl (13.5-17.5); LYMPH # 1.2 10^3/uL (1.5-5.0); LYMPH % 19.3 % (24.0-44.0); MEAN CORPUSCULAR HGB CONC 35.2 g/dl (32.0-36.5); MEAN CORPUSCULAR VOLUME 96.7 fl (80.0-96.0); MONO # 0.6 10^3/uL (0.0-0.8); MONO % 10.5 % (2.0-8.0); NEUTROPHILS # 3.6 10^3/uL (1.5-8.5); NEUTROPHILS % 59.2 % (36.0-66.0); PLATELET COUNT, AUTOMATED 151 10^3/uL (150-450); RED BLOOD COUNT 2.41 10^6/uL (4.30-6.10)
[2023-07-04 06:00] VITALS: BP 151/71; TEMP 98.1; O2SAT 97
[2023-07-04] MEDS: HEPARIN SOD (PORCINE) 5000UNITS/ML 1ML VIAL/SYRINGE SC SCH ×3 (06:04→21:15)
[2023-07-04 06:23] LABS: CALCIUM LEVEL 8.4 MG/DL (8.3-10.6); CREATININE FOR GFR 4.17 MG/DL (0.70-1.30); GLOMERULAR FILTRATION RATE 15.1 (>42); MAGNESIUM LEVEL 1.7 MG/DL (1.8-2.4); POTASSIUM SERUM 4.3 MMOL/L (3.5-5.1)
[2023-07-04] MEDS: TAMSULOSIN 0.4 MG CAP PO SCH (08:21)
[2023-07-04] MEDS: FINASTERIDE 5MG TAB PO SCH (08:21)
[2023-07-04] MEDS: DOCUSATE SODIUM 100MG CAPSULE PO SCH ×2 (08:21→21:15)
[2023-07-04] MEDS: MULTIVITAMINS/MINERALS THERAP 1 TAB PO SCH (08:21)
[2023-07-04] MEDS: FERROUS SULFATE 325MG TAB PO SCH (08:21)
[2023-07-04] MEDS: OMEPRAZOLE 20MG CAP PO SCH (08:21)
[2023-07-04] MEDS: amLODIPine 5 MG TAB PO SCH (08:21)
[2023-07-04] MEDS: MAG SULF 1GM/100ML (MAG RUN) 1 GM in IV 1 EA IV SCH ×2 (08:22→11:56)
[2023-07-04 14:00] VITALS: BP 120/56; TEMP 98.1; O2SAT 99
[2023-07-04 20:16] VITALS: BP 142/68; TEMP 98.2; O2SAT 98
[2023-07-05] VITALS (7 sets, daily range): BP systolic 138–174; BP diastolic 73–81; TEMP 98.1–98.7; O2SAT 98
[2023-07-05] MEDS: HEPARIN SOD (PORCINE) 5000UNITS/ML 1ML VIAL/SYRINGE SC SCH (05:58)
[2023-07-05 06:12] LABS: BASO # 0.1 10^3/uL (0.0-0.2); BASO % 0.9 % (0.0-1.0); EOS # 0.6 10^3/uL (0.0-0.5); EOS % 8.5 % (0.0-3.0); HEMATOCRIT 22.4 % (42.0-52.0); HEMOGLOBIN 7.9 g/dl (13.5-17.5); LYMPH # 1.1 10^3/uL (1.5-5.0); LYMPH % 16.6 % (24.0-44.0); MEAN CORPUSCULAR HEMOGLOBIN 34.1 pg (27.0-33.0); MEAN CORPUSCULAR HGB CONC 35.3 g/dl (32.0-36.5); MEAN CORPUSCULAR VOLUME 96.6 fl (80.0-96.0); MONO # 0.6 10^3/uL (0.0-0.8); MONO % 9.1 % (2.0-8.0); NEUTROPHILS # 4.3 10^3/uL (1.5-8.5); NEUTROPHILS % 64.6 % (36.0-66.0); PLATELET COUNT, AUTOMATED 140 10^3/uL (150-450); RED BLOOD COUNT 2.32 10^6/uL (4.30-6.10); WHITE BLOOD COUNT 6.6 10^3/uL (4.0-10.0)
[2023-07-05 06:38] LABS: CREATININE FOR GFR 5.61 MG/DL (0.70-1.30); GLOMERULAR FILTRATION RATE 10.7 (>42); POTASSIUM SERUM 4.2 MMOL/L (3.5-5.1)
[2023-07-05] MEDS ORDERED: HEPARIN 1,000UNITS/ML 10ML VIAL (FOR RADIOLOGY & DIALYSIS ONLY) IV PRN (07:05)
[2023-07-05] MEDS ORDERED: HEPARIN 1,000UNITS/ML 10ML VIAL (FOR RADIOLOGY & DIALYSIS ONLY) XX SCH (07:05)
[2023-07-05] MEDS ORDERED: SODIUM CHLORIDE 0.9% 1000ML IV PRN (07:05)
[2023-07-05] MEDS: DOCUSATE SODIUM 100MG CAPSULE PO SCH (08:00)
[2023-07-05] MEDS: MULTIVITAMINS/MINERALS THERAP 1 TAB PO SCH (08:00)
[2023-07-05] MEDS: OMEPRAZOLE 20MG CAP PO SCH (08:00)
[2023-07-05] MEDS: FERROUS SULFATE 325MG TAB PO SCH (08:00)
[2023-07-05] MEDS: FINASTERIDE 5MG TAB PO SCH (08:00)
[2023-07-05] MEDS: TAMSULOSIN 0.4 MG CAP PO SCH (08:00)
[2023-07-05] MEDS: amLODIPine 5 MG TAB PO SCH (08:02)
[2023-07-05 09:31] LABS: MAGNESIUM LEVEL 2.2 MG/DL (1.8-2.4)
[2023-07-05] MEDS ORDERED: [UNRECOGNIZED DRUG - CODE] PO (10:49)
[2023-07-05] MEDS ORDERED: AMLO10TA PO (10:49)
== END 2023-07-05 14:05 | disposition home or self-care (01) | DRG 674 ==
LOC: M ED 09:51 → M ED INP 14:45 → M PCU 18:17 → M MSPAV 07-02 17:50
PROVIDERS: ADMIT Internal Medicine; ATTEND Internal Medicine
PROC: 30233N1 Transfusion of Nonautologous Red Blood Cells into Peripheral Vein, Percutaneous Approach (ICD-10-PCS; 2023-07-01)
PROC: 0JH63XZ Insertion of Tunneled Vascular Access Device into Chest Subcutaneous Tissue and Fascia, Percutaneous Approach (ICD-10-PCS; principal; 2023-07-01 12:00)
PROC: 5A1D70Z Performance of Urinary Filtration, Intermittent, Less than 6 Hours Per Day (ICD-10-PCS; 2023-07-05)
DX: N17.9 Acute kidney failure, unspecified (principal); I12.0 Hypertensive chronic kidney disease with stage 5 chronic kidney disease or end stage renal disease; N18.6 End stage renal disease; F41.9 Anxiety disorder, unspecified; N40.0 Benign prostatic hyperplasia without lower urinary tract symptoms; D63.8 Anemia in other chronic diseases classified elsewhere; E55.9 Vitamin D deficiency, unspecified; E87.5 Hyperkalemia; K21.9 Gastro-esophageal reflux disease without esophagitis; I70.1 Atherosclerosis of renal artery; K76.89 Other specified diseases of liver; N20.0 Calculus of kidney; R60.0 Localized edema; Z98.41 Cataract extraction status, right eye; Z98.42 Cataract extraction status, left eye; Z79.899 Other long term (current) drug therapy

== ENCOUNTER → 2023-09-03 | Outpatient (REF) | payer BC ==
[~2023-09-03] MED LIST changes: +AMLO10TA PO; +CYAN-1 PO; +LOSA25TA13; +OMEP-173 PO; +[UNRECOGNIZED DRUG - CODE] PO
== END ==
LOC: M SMT 17:50
PROVIDERS: ATTEND Urology
DX: N48.9 Disorder of penis, unspecified (principal); L81.4 Other melanin hyperpigmentation; L90.5 Scar conditions and fibrosis of skin

== ENCOUNTER → 2023-10-15 | Day surgery (SDC) | payer BC, MEDICARE ==
[~2023-10-15] VITALS: Ht 170.2 cm; Wt 73.8 kg
[~2023-10-15] MED LIST changes: +AMLO1TAB24 PO; +ASPI81TA26 PO; +GLYCOPYRROLATE INJ 0.2 MG/ML 2 ML VIAL As Ordered ONE; +HEPARIN SOD (PORCINE) 5000UNITS/ML 1ML VIAL/SYRINGE As Ordered ONE; +LIDOCAINE 1% SDV 30ML VIAL As Ordered ONE; +LIDOCAINE 2% 100MG/5ML SDV (FOR ANES.) As Ordered ONE; -LOSA25TA13; +LOSA25TA13 PO; +LR 1,000 ML IV SCH; +MIDAZOLAM INJ 2MG/2ML VIAL As Ordered ONE; +MORPHINE 2 MG/ML 1ML VIAL IV PRN; +ONDANSETRON 4MG 2ML VIAL As Ordered ONE; +ONDANSETRON 4MG 2ML VIAL IV PRN; +PAPAVERINE HCL 60MG 2ML VIAL (30MG/ML) As Ordered ONE; +PHENYLephrine 500MCG 5ML (100MCG/ML) SYRINGE As Ordered ONE; +VASOPRESSIN INJ 20UNITS/ML 1ML VIAL As Ordered ONE; +ceFAZolin 2 GM/D5W 50 ML IV BAG As Ordered ONE; +ceFAZolin SOD 2 GM in IV 1 EA IV ONE; +ePHEDrine SULFATE 25 MG/5 ML(5MG/ML) SYRINGE As Ordered ONE; +fentaNYL 100 MCG/2 ML INJECTION As Ordered ONE; +fentaNYL 100 MCG/2 ML INJECTION IV PRN; +oxyCODONE 5MG TAB PO PRN; +propofoL 200 MG/20 ML VIAL As Ordered ONE
[2023-10-15 07:20] LABS: HEMATOCRIT 29.5 % (42.0-52.0); HEMOGLOBIN 10.1 g/dl (13.5-17.5); MEAN CORPUSCULAR HEMOGLOBIN 36.5 pg (27.0-33.0); MEAN CORPUSCULAR HGB CONC 34.2 g/dl (32.0-36.5); MEAN CORPUSCULAR VOLUME 106.5 fl (80.0-96.0); PLATELET COUNT, AUTOMATED 256 10^3/uL (150-450); RED BLOOD COUNT 2.77 10^6/uL (4.30-6.10); WHITE BLOOD COUNT 5.3 10^3/uL (4.0-10.0)
[2023-10-15 08:01] LABS: CALCIUM LEVEL 8.7 MG/DL (8.3-10.6); GLOMERULAR FILTRATION RATE 12.2 (>42); POTASSIUM SERUM 4.1 MMOL/L (3.5-5.1)
[2023-10-15 13:11] VITALS: BP 140/83; TEMP 98; O2SAT 98
== END | disposition home or self-care (01) ==
LOC: M SDC 06:28
PROVIDERS: ATTEND Surgery Vascular Surgery
DX: N18.6 End stage renal disease (principal); I12.0 Hypertensive chronic kidney disease with stage 5 chronic kidney disease or end stage renal disease; F41.9 Anxiety disorder, unspecified; K21.9 Gastro-esophageal reflux disease without esophagitis; Z87.891 Personal history of nicotine dependence; Z99.2 Dependence on renal dialysis
CPT/HCPCS: 36415; 36821; 36833; 80048; 85027; 86850; 86900; 86901; 93005; J0665; J0690; J1100; J2250; J2371; J2405; J2440; J2598; J3010

== ENCOUNTER → 2024-01-08 | Outpatient (CLI) | payer BC ==
[~2024-01-08] MED LIST changes: -GLYCOPYRROLATE INJ 0.2 MG/ML 2 ML VIAL As Ordered ONE; -HEPARIN SOD (PORCINE) 5000UNITS/ML 1ML VIAL/SYRINGE As Ordered ONE; -LIDOCAINE 1% SDV 30ML VIAL As Ordered ONE; -LIDOCAINE 2% 100MG/5ML SDV (FOR ANES.) As Ordered ONE; -LR 1,000 ML IV SCH; -MIDAZOLAM INJ 2MG/2ML VIAL As Ordered ONE; -MORPHINE 2 MG/ML 1ML VIAL IV PRN; -ONDANSETRON 4MG 2ML VIAL As Ordered ONE; -ONDANSETRON 4MG 2ML VIAL IV PRN; -PAPAVERINE HCL 60MG 2ML VIAL (30MG/ML) As Ordered ONE; -PHENYLephrine 500MCG 5ML (100MCG/ML) SYRINGE As Ordered ONE; -VASOPRESSIN INJ 20UNITS/ML 1ML VIAL As Ordered ONE; -ceFAZolin 2 GM/D5W 50 ML IV BAG As Ordered ONE; -ceFAZolin SOD 2 GM in IV 1 EA IV ONE; -ePHEDrine SULFATE 25 MG/5 ML(5MG/ML) SYRINGE As Ordered ONE; -fentaNYL 100 MCG/2 ML INJECTION As Ordered ONE; -fentaNYL 100 MCG/2 ML INJECTION IV PRN; -oxyCODONE 5MG TAB PO PRN; -propofoL 200 MG/20 ML VIAL As Ordered ONE
== END ==
LOC: M PLALAB 08:43
PROVIDERS: ATTEND Physician Assistant
DX: Z12.5 Encounter for screening for malignant neoplasm of prostate (principal)
CPT/HCPCS: 36415; G0103

== ENCOUNTER → 2024-02-14 | Outpatient (CLI) | payer BC | LOC: M PLAIMG 12:28 | PROVIDERS: ATTEND Nurse Practitioner Family | DX: Z01.818 Encounter for other preprocedural examination (principal) ==

== ENCOUNTER → 2024-03-11 | Outpatient (CLI) | payer BC | LOC: M CLY 11:51 | PROVIDERS: ATTEND Nurse Practitioner Family | DX: R05.8 Other specified cough (principal) ==

== ENCOUNTER → 2024-03-11 | Outpatient (REF) | payer BC ==
[2024-03-11 18:26] LABS: BASO # 0.2 10^3/uL (0.0-0.2); BASO % 1.1 % (0.0-1.0); EOS # 0.8 10^3/uL (0.0-0.5); HEMATOCRIT 35.5 % (42.0-52.0); HEMOGLOBIN 11.9 g/dl (13.5-17.5); LYMPH # 1.9 10^3/uL (1.5-5.0); LYMPH % 13.4 % (24.0-44.0); MEAN CORPUSCULAR HGB CONC 33.5 g/dl (32.0-36.5); MEAN CORPUSCULAR VOLUME 110.2 fl (80.0-96.0); MONO # 0.8 10^3/uL (0.0-0.8); NEUTROPHILS # 9.6 10^3/uL (1.5-8.5); PLATELET COUNT, AUTOMATED 287 10^3/uL (150-450); RED BLOOD COUNT 3.22 10^6/uL (4.30-6.10); WHITE BLOOD COUNT 13.9 10^3/uL (4.0-10.0)
[2024-03-11 18:33] LABS: ERYTHROCYTE SEDIMENTATION RATE 28 mm/hr (0-20)
[2024-03-11 18:48] LABS: C REACTIVE PROTEIN QUANTITATIV 3.9 MG/DL (<1.0)
[2024-03-11 18:50] LABS: ALBUMIN 3.3 G/DL (3.2-5.2); BILIRUBIN,TOTAL 0.2 MG/DL (0.3-1.2); CALCIUM LEVEL 8.5 MG/DL (8.3-10.6); CREATININE FOR GFR 6.99 MG/DL (0.70-1.30); GLOMERULAR FILTRATION RATE 8.3 (>42); POTASSIUM SERUM 5.1 MMOL/L (3.5-5.1); TOTAL PROTEIN 6.8 G/DL (5.7-8.2)
== END ==
LOC: M SFHCCLAY 11:45
PROVIDERS: ATTEND Nurse Practitioner Family
DX: R21 Rash and other nonspecific skin eruption (principal)

== ENCOUNTER → 2024-07-08 | Outpatient (REF) | payer BC ==
[~2024-07-08] MED LIST changes: +SEVE800T3 PO; +VITA250T27 PO; -VITA250T4 PO
== END ==
LOC: EDSTATUS 10:45 → M RAD 10:55
PROVIDERS: ATTEND Surgery
DX: N18.6 End stage renal disease (principal)

== ENCOUNTER → 2024-10-21 | Outpatient (CLI) | payer BC ==
[~2024-10-21] MED LIST changes: +LIDOCAINE 1% MDV 20ML VIAL As Ordered ONE; +LIDOCAINE W/EPINEPHRINE 1% 20ML VIAL As Ordered ONE
[2024-10-21 13:23] VITALS: TEMP 98.1
[2024-10-21 14:10] VITALS: BP 154/72; O2SAT 97
== END ==
LOC: M IRPRO 13:19
PROVIDERS: ATTEND Internal Medicine Nephrology
DX: N18.6 End stage renal disease (principal)

== ENCOUNTER → 2024-12-28 | Outpatient (CLI) | payer BC ==
[~2024-12-28] MED LIST changes: -LIDOCAINE 1% MDV 20ML VIAL As Ordered ONE; -LIDOCAINE W/EPINEPHRINE 1% 20ML VIAL As Ordered ONE
== END ==
LOC: M PLALAB 09:15
PROVIDERS: ATTEND Physician Assistant
DX: Z12.5 Encounter for screening for malignant neoplasm of prostate (principal); Z87.442 Personal history of urinary calculi
CPT/HCPCS: 36415; 74018; G0103

== ENCOUNTER → 2025-02-03 | Outpatient (REF) | payer BC ==
[2025-02-03 13:05] LABS: HEMOGLOBIN A1c 4.8 % (4.0-6.0)
[2025-02-03 13:16] LABS: ALBUMIN 3.7 G/DL (3.2-5.2); BILIRUBIN,TOTAL 0.2 MG/DL (0.3-1.2); CALCIUM LEVEL 8.8 MG/DL (8.3-10.6); CHOLESTEROL RISK RATIO 2.49 (<5); CREATININE FOR GFR 7.46 MG/DL (0.70-1.30); FREE T4 0.87 NG/DL (0.89-1.76); GLOMERULAR FILTRATION RATE 7.7 (>42); HDL CHOLESTEROL 50.5 MG/DL (>40); LDL CHOLESTEROL 57.3 MG/DL (<100); NON-HDL-C 75.5 MG/DL; POTASSIUM SERUM 5.3 MMOL/L (3.5-5.1); THYROID STIMULATING HORMONE 2.238 uIU/ML (0.55-4.78); TOTAL PROTEIN 7.5 G/DL (5.7-8.2)
== END ==
LOC: M SFHCCLAY 08:39
PROVIDERS: ATTEND Nurse Practitioner Family
DX: Z00.00 Encounter for general adult medical examination without abnormal findings (principal); I10 Essential (primary) hypertension; F41.1 Generalized anxiety disorder; N40.1 Benign prostatic hyperplasia with lower urinary tract symptoms; Z99.2 Dependence on renal dialysis

== ENCOUNTER → 2025-04-09 | Outpatient (CLI) | payer BC, MEDICARE ==
[~2025-04-09] MED LIST changes: +AMLO-751 PO; -AMLO10TA PO
== END ==
LOC: M CARPUL 07:47
PROVIDERS: ATTEND Nurse Practitioner Family
DX: Z01.818 Encounter for other preprocedural examination (principal); I08.3 Combined rheumatic disorders of mitral, aortic and tricuspid valves

== ENCOUNTER → 2025-07-12 | Outpatient (REF) | LOC: M RAD 16:41 → EDSTATUS 17:00 | PROVIDERS: ATTEND Nurse Practitioner Family | DX: Z01.818 Encounter for other preprocedural examination (principal) ==

== ENCOUNTER → 2025-08-18 | Outpatient (CLI) | payer BC | LOC: M RAD 13:13 | PROVIDERS: ATTEND Nurse Practitioner Family | DX: Z01.818 Encounter for other preprocedural examination (principal); N18.6 End stage renal disease; K80.20 Calculus of gallbladder without cholecystitis without obstruction; N26.1 Atrophy of kidney (terminal); N28.1 Cyst of kidney, acquired; E04.2 Nontoxic multinodular goiter; R91.8 Other nonspecific abnormal finding of lung field ==

== ENCOUNTER → 2025-11-09 | Outpatient (CLI) | payer BC | LOC: M CARPUL 08:13 | PROVIDERS: ATTEND Nurse Practitioner Family | DX: Z01.818 Encounter for other preprocedural examination (principal); N18.6 End stage renal disease | CPT/HCPCS: 78452; 93017; A9500; J2785 ==